=== PATIENT | female | born 1955 | race African-American/Black ===

== ENCOUNTER 2018-12-24 07:30 | Day surgery (SDC) | payer OTHER ==
[~2018-12-24] VITALS: Ht 166.4 cm; Wt 95.2 kg
--- NOTE | 2018-12-24 07:11 | HP ---
ADMIT DATE: HISTORY OF PRESENT ILLNESS: The patient is referred by Dr. Mcgrath because of epigastric mass that is getting larger and causing her more pain and tenderness. She has had a CT scan, which did not show it and has also had a sonogram, which was negative. PAST MEDICAL HISTORY: Shows normal childhood diseases. She does have hypertension and has diabetes, which she is controlling with diet, but hypertension she takes hydrochlorothiazide for. She also has had a fractured left knee many years ago and has had surgery for that and has had a bladder suspension surgery. Apparently, she had a cystocele. ALLERGIES: The patient has no allergies. REVIEW OF SYSTEMS: Basically negative except for the epigastric pain with a mass, which is enlarging. FAMILY HISTORY: Noncontributory. SOCIAL HISTORY: She does not smoke, drink or use illicit drugs. PHYSICAL EXAMINATION: GENERAL: Shows an alert female, in no acute distress. HEAD, EYES, EARS, NOSE AND THROAT: Grossly normal. CHEST: Clear bilaterally to auscultation. HEART: Had no murmurs, heaves, friction rubs or thrills and the rate was 74 beats per minute and it was regular. ABDOMEN: Showed no tenderness or organomegaly, but she did have a mass about 8-10 cm in the epigastrium, high. It appeared to be more on the right side and could not be reduced. Otherwise, the abdomen was negative. EXTREMITIES: Grossly negative except for the scar of the left knee surgery. IMPRESSION: 1. Diabetes. 2. Hypertension. 3. Not mentioned before is that she does have multiple sclerosis for which she takes no medicine and has had this for about 50 years and is basically grossly asymptomatic from that. 4. She does have an epigastric mass, which we think is an abdominal wall hernia. RAMONA HEALY MD DR: LISA/colt JOB#: [id number] / [id number]
[~2018-12-24 07:30] MED LIST: BUPIVAC MPF-EPI 0.5%-1:200000 30 ML VIAL. ONE; DULO30CA2 PO; GABA300C18 PO; HYDR-2145 PO; HYDR12.58 PO; HYDROmorphone 2 MG/ML VIAL IV PRN; IV RINGERS,LACTATED 1000ML 1,000 ML IV SCH; LIDOCAINE 1% PF 2 ML VIAL. ID PRN; MORPHINE SULFATE 2 MG/ML VIAL. IV PRN; MULT1TAB52 PO; OMEG1CAP28 PO; ONDANSETRON PF 4 MG/2 ML VIAL. IV PRN; PROCHLORPERAZINE 10 MG/2 ML VIAL. IV PRN; fentaNYL PF VIAL 100 MCG/2 ML VIAL IV PRN
[2018-12-24] MEDS ORDERED: fentaNYL PF VIAL 100 MCG/2 ML VIAL ONE (08:19)
[2018-12-24] MEDS ORDERED: LIDOCAINE 2% PF 5 ML VIAL. ONE (08:19)
[2018-12-24] MEDS ORDERED: PROPOFOL 20 ML IV ONE (08:19)
[2018-12-24] MEDS ORDERED: ROCURONIUM 50 MG/5 ML VIAL. ONE (08:19)
[2018-12-24 08:45] LABS: BASO % 1 % (0-3); EOS # 0.1 x10^3/uL (0.0-0.7); EOS % 2 % (0-3); HEMOGLOBIN 11.2 g/dL (12.0-15.5); LYMPH # 1.6 x10^3/uL (1.0-4.8); LYMPH % 36 % (24-48); MEAN CORPUSCULAR HEMOGLOBIN 25 pg (25-35); MEAN CORPUSCULAR HGB CONC 32 g/dL (31-37); MEAN CORPUSCULAR VOLUME 77 fL (79-100); MONO # 0.4 x10^3/uL (0.0-1.1); MONO % 8 % (0-9); NEUT # 2.5 x10^3/uL (1.8-7.7); NEUT % 54 % (31-73); PLATELET COUNT 239 x10^3/uL (140-400); RED BLOOD COUNT 4.53 x10^6/uL (3.50-5.40); RED CELL DISTRIBUTION WIDTH 16.5 % (11.5-14.5); WHITE BLOOD COUNT 4.6 x10^3/uL (4.0-11.0)
[2018-12-24 08:50] LABS: CALCIUM 9.8 mg/dL (8.5-10.1); CREATININE 0.7 mg/dL (0.6-1.0); GFR 102.6; POTASSIUM 3.4 mmol/L (3.5-5.1)
[2018-12-24 08:53] LABS: PROTHROMBIN TIME PATIENT 12.7 SEC (11.7-14.0)
[2018-12-24 08:56] LABS: ALBUMIN 4.1 g/dL (3.4-5.0); TOTAL BILIRUBIN 0.6 mg/dL (0.2-1.0); TOTAL PROTEIN 8.1 g/dL (6.4-8.2)
--- NOTE | 2018-12-24 10:14 | PDOC ---
SURGICAL PROGRESS NOTE Subjective Op Note: surgeon...........................Healy Pre op diag......................incarcerated venral hernia x 2 Post op diag....................same Anesthesia......................general Procedure.......................repain incarcerated ventral hernias Blood loss.......................15cc Fluids.............................see anesthesia sheet Drains.............................none Condition........................satisfactory Vital Signs Vital Signs Date Time Temp Pulse Resp B/P (MAP) Pulse Ox O2 Delivery O2 Flow Rate FiO2 12/24/18 08:25 97.3 72 20 178/90 99 Room Air 97.3 Labs Laboratory Tests Test 12/24/18 08:35 White Blood Count 4.6 x10^3/uL (4.0-11.0) Red Blood Count 4.53 x10^6/uL (3.50-5.40) Hemoglobin 11.2 g/dL (12.0-15.5) Hematocrit 35.0 % (36.0-47.0) Mean Corpuscular Volume 77 fL (79-100) Mean Corpuscular Hemoglobin 25 pg (25-35) Mean Corpuscular Hemoglobin Concent 32 g/dL (31-37) Red Cell Distribution Width 16.5 % (11.5-14.5) Platelet Count 239 x10^3/uL (140-400) Neutrophils (%) (Auto) 54 % (31-73) Lymphocytes (%) (Auto) 36 % (24-48) Monocytes (%) (Auto) 8 % (0-9) Eosinophils (%) (Auto) 2 % (0-3) Basophils (%) (Auto) 1 % (0-3) Neutrophils # (Auto) 2.5 x10^3/uL (1.8-7.7) Lymphocytes # (Auto) 1.6 x10^3/uL (1.0-4.8) Monocytes # (Auto) 0.4 x10^3/uL (0.0-1.1) Eosinophils # (Auto) 0.1 x10^3/uL (0.0-0.7) Basophils # (Auto) 0.0 x10^3/uL (0.0-0.2) Prothrombin Time 12.7 SEC (11.7-14.0) Prothromb Time International Ratio 1.0 (0.8-1.1) Activated Partial Thromboplast Time 28 SEC (24-38) Sodium Level 145 mmol/L (136-145) Potassium Level 3.4 mmol/L (3.5-5.1) Chloride Level 106 mmol/L (98-107) Carbon Dioxide Level 29 mmol/L (21-32) Anion Gap 10 (6-14) Blood Urea Nitrogen 11 mg/dL (7-20) Creatinine 0.7 mg/dL (0.6-1.0) Estimated GFR (Cockcroft-Gault) 102.6 BUN/Creatinine Ratio 16 (6-20) Glucose Level 88 mg/dL (70-99) Calcium Level 9.8 mg/dL (8.5-10.1) Total Bilirubin 0.6 mg/dL (0.2-1.0) Aspartate Amino Transf (AST/SGOT) 16 U/L (15-37) Alanine Aminotransferase (ALT/SGPT) 20 U/L (14-59) Alkaline Phosphatase 56 U/L (46-116) Total Protein 8.1 g/dL (6.4-8.2) Albumin 4.1 g/dL (3.4-5.0) Albumin/Globulin Ratio 1.0 (1.0-1.7) Laboratory Tests Test 12/24/18 08:35 White Blood Count 4.6 x10^3/uL (4.0-11.0) Red Blood Count 4.53 x10^6/uL (3.50-5.40) Hemoglobin 11.2 g/dL (12.0-15.5) Hematocrit 35.0 % (36.0-47.0) Mean Corpuscular Volume 77 fL (79-100) Mean Corpuscular Hemoglobin 25 pg (25-35) Mean Corpuscular Hemoglobin Concent 32 g/dL (31-37) Red Cell Distribution Width 16.5 % (11.5-14.5) Platelet Count 239 x10^3/uL (140-400) Neutrophils (%) (Auto) 54 % (31-73) Lymphocytes (%) (Auto) 36 % (24-48) Monocytes (%) (Auto) 8 % (0-9) Eosinophils (%) (Auto) 2 % (0-3) Basophils (%) (Auto) 1 % (0-3) Neutrophils # (Auto) 2.5 x10^3/uL (1.8-7.7) Lymphocytes # (Auto) 1.6 x10^3/uL (1.0-4.8) Monocytes # (Auto) 0.4 x10^3/uL (0.0-1.1) Eosinophils # (Auto) 0.1 x10^3/uL (0.0-0.7) Basophils # (Auto) 0.0 x10^3/uL (0.0-0.2) Prothrombin Time 12.7 SEC (11.7-14.0) Prothromb Time International Ratio 1.0 (0.8-1.1) Activated Partial Thromboplast Time 28 SEC (24-38) Sodium Level 145 mmol/L (136-145) Potassium Level 3.4 mmol/L (3.5-5.1) Chloride Level 106 mmol/L (98-107) Carbon Dioxide Level 29 mmol/L (21-32) Anion Gap 10 (6-14) Blood Urea Nitrogen 11 mg/dL (7-20) Creatinine 0.7 mg/dL (0.6-1.0) Estimated GFR (Cockcroft-Gault) 102.6 BUN/Creatinine Ratio 16 (6-20) Glucose Level 88 mg/dL (70-99) Calcium Level 9.8 mg/dL (8.5-10.1) Total Bilirubin 0.6 mg/dL (0.2-1.0) Aspartate Amino Transf (AST/SGOT) 16 U/L (15-37) Alanine Aminotransferase (ALT/SGPT) 20 U/L (14-59) Alkaline Phosphatase 56 U/L (46-116) Total Protein 8.1 g/dL (6.4-8.2) Albumin 4.1 g/dL (3.4-5.0) Albumin/Globulin Ratio 1.0 (1.0-1.7) RAMONA HEALY MD Dec 24, 2018 10:14
[2018-12-24] MEDS ORDERED: ONDANSETRON PF 4 MG/2 ML VIAL. ONE (10:24)
[2018-12-24] MEDS ORDERED: DEXAMETHASONE SOD PHOS 4 MG/ML VIAL ONE (10:24)
[2018-12-24] MEDS ORDERED: DESFLURANE > 120 MINUTES IH ONE (10:24)
[2018-12-24] MEDS ORDERED: METOPROLOL TARTRATE 5 MG/5 ML VIAL. IVP ONE (10:26)
[2018-12-24] MEDS ORDERED: PHENYLEPHRINE in 0.9% NACL PF 1 MG/10 ML SYRINGE. IV ONE (10:38)
[2018-12-24] MEDS ORDERED: NEOSTIGMINE METHYLSULFATE 5 MG/5 ML SYRINGE. ONE (10:52)
[2018-12-24] MEDS ORDERED: GLYCOPYRROLATE 1 MG/5 ML VIAL. ONE (10:52)
--- NOTE | 2018-12-24 12:39 | DISCH ---
DISCHARGE INSTRUCTIONS Condition on Discharge Condition on Discharge: Stable Activity After Discharge Activity Instructions for Disc: Activity as tolerated, Bedrest today, Walk in house, Other, see below Other activity instructions: activity non strenuous Lifting Instructions after Dis: No heavy lifting Driving Instructions after Dis: Do not drive today Weight Bearing Status after Di: No restrictions Diet after Discharge Diet after Discharge: Clear Liquid, Low Fat, Regular Diet Texture: Regular Liquid Texture: Thin Liquid Swallowing Supervision: None needed Wound Incision Care Wound/Incision Care: Other, see below Other wound/incision instructi: May shower so horvath abd binder when OOB and loose or off when in bed Checks after Discharge Checks after discharge: Check blood press - daily Follow-Up Follow up with: [facility] and make appointment to see me in 7-10days. Treatment/Equipment after DC Adaptive Equipment Issued: None RAMONA HEALY MD Dec 24, 2018 12:39
[2018-12-24] MEDS ORDERED: OXYC1TAB19 PO (13:36)
[2018-12-24] MEDS ORDERED: oxyCODONE/APAP 7.5/325 1 TAB TABLET PO ONE (13:45)
[2018-12-24 14:30] VITALS: BP 169/90
--- NOTE | 2018-12-24 23:31 | OP ---
DATE OF SURGERY: 12/24/2018 SURGEON: Philipp Healy MD. PREOPERATIVE DIAGNOSIS: Incarcerated ventral hernia x 2. POSTOPERATIVE DIAGNOSIS: Incarcerated ventral hernia x 2. PROCEDURE: Repair of incarcerated ventral hernias of the anterior abdominal wall. ANESTHESIA: General. OPERATIVE TECHNIQUE: Under general anesthesia, the patient was properly prepped and draped in a routine fashion. The larger hernia was in the midline, more proximal to the xiphoid, being almost in the middle between xiphoid and umbilicus. As such, we made an incision, little more longer inferiorly as the other hernia was there. The more inferior hernia was not palpated but was seen on CT scan. The incision was made with a #15 blade, carried down through the skin about 6 inches or more in length. We carried this down through the skin using a #15 blade. We then went into the subcutaneous over the mass that could be seen there with a Metzenbaum scissors and slowly dissected down to the sac. Then, using sharp dissection with Metzenbaum scissors and also finger dissection, we freed the sac from the surrounding structures. We found the sac down at its ring and we could not reduce this hernia. It was about the size of a small apple. We then opened the sac and actually I do not think we ever went into the peritoneal cavity. We never saw intestines and this may have been simply preperitoneal fat and omentum. At any rate, we did not explore into the abdomen to see. We slowly were able to open this up and slowly reduced the contents of the sac after it freed up from some of the adhesions back into the hernia. Having done this, we inspected the area and then placed a circular piece of mesh, which had Seprafilm on one side and placed it in there. The tag was there, so that it would not fall and we were not in the peritoneal cavity. We placed this in so that the Seprafilm was pointing towards the posterior area and anteriorly it was where the tie came out, it lay flat and was about 4-5 cm in diameter. We then pulled this up and then placed four #1 Prolene sutures through the fascia going about a centimeter back and a centimeter forward, and taken to the anterior portion of the small bit of mesh that was there. There was double layer so we did not penetrate below the posterior layer. These were placed and then the tag on the patch was removed and we then tied these. She had a good closure there with the mesh in place and the hernia had been fixed. We did inject 0.5% Marcaine and epinephrine into the fascia where the hernia had been and also where the sutures were. We then dissected inferiorly and found a mass, which was about the size of a pecan, more inferiorly about 4 cm caudad to this hernia repair. We then were able to free it up in a likewise fashion, reduced it and then placed two #1 Prolene sutures in this. The defect in the fascia was so small, we did not put a plug or patch there. This having been done, we likewise anesthetized this with 0.5% Marcaine and epinephrine. The procedure was now closed with the sutures were cut and we then irrigated the subcutaneous with saline and then approximated the subcutaneous using interrupted 4-0 Vicryl and the skin was closed using a skin stapler. Sterile Tegaderm dressing was applied and the procedure was terminated. The blood loss was probably about 15-20 mL. Fluids given can be obtained from the anesthesia sheet. No drains were used. Condition of the patient was satisfactory as she returned to the recovery room. PHILIPP HEALY MD DR: LISA/colt JOB#: [id number] / [id number]
== END 2018-12-24 14:35 | disposition home or self-care (01) ==
LOC: SURG 07:30
PROVIDERS: ATTEND Specialist
DX: K43.6 Other and unspecified ventral hernia with obstruction, without gangrene (principal); I10 Essential (primary) hypertension; E11.9 Type 2 diabetes mellitus without complications; Z79.01 Long term (current) use of anticoagulants
CPT/HCPCS: 36415; 49561; 49568; 80053; 85025; 85610; 85730; A7015; C1781; J0690; J1100; J2001; J2370; J2405; J2704; J2710; J3010; J3490

== ENCOUNTER 2018-12-24 18:38 | Emergency (ER) | payer OTHER ==
[~2018-12-24] VITALS: Ht 167.6 cm; Wt 95.3 kg
[~2018-12-24 18:38] MED LIST changes: -BUPIVAC MPF-EPI 0.5%-1:200000 30 ML VIAL. ONE; -HYDROmorphone 2 MG/ML VIAL IV PRN; -IV RINGERS,LACTATED 1000ML 1,000 ML IV SCH; -LIDOCAINE 1% PF 2 ML VIAL. ID PRN; -MORPHINE SULFATE 2 MG/ML VIAL. IV PRN; -ONDANSETRON PF 4 MG/2 ML VIAL. IV PRN; +OXYC1TAB19 PO; -PROCHLORPERAZINE 10 MG/2 ML VIAL. IV PRN; -fentaNYL PF VIAL 100 MCG/2 ML VIAL IV PRN
[2018-12-24 19:03] VITALS: BP 136/68
--- NOTE | 2018-12-24 20:20 | PHYS DOC ---
Past Medical History Past Medical History: Hypertension Additional Past Medical Histor: MULTIPLE SCLEROSIS (STEFANI RICARDO APRN) Past Surgical History: Knee Replacement Additional Past Surgical Histo: Left knee,Right ankle, pelvic sling (STEFANI RICARDO APRN) Alcohol Use: None Drug Use: None (STEFANI RICARDO APRN) Adult General Chief Complaint Chief Complaint: WOUND CHECK [facility] HPI Patient is a 63 year old AA female who presents to the emergency Department today with complaints of her ventral hernia surgical dressing being saturated with blood. She states that she had a ventral hernia repair earlier today by Dr. Healy and that tonight she noticed that the gauze was bloody. She denies any injury to his sites. She denies any drainage of blood from the dressing. She states that she called the office and told her to go to the ER to have the site checked. She denies any pain. ROS Patient denies fever, abdominal pain, nausea, vomiting, diarrhea, or any injury to her abdomen. She denies dizziness, lightheadedness, or shortness of breath. All other ROS is neg unless otherwise noted in HPI. (STEFANI RICARDO OUTREACH MANAGER) Review of Systems Review of Systems See Above (STEFANI RICARDO APRN) Allergies Allergies Allergies Coded Allergies Type Severity Reaction Last Updated Verified sulfamethoxazole Adverse Reaction Intermediate Nausea and Vomiting 12/24/18 Yes trimethoprim Adverse Reaction Intermediate Nausea and Vomiting 12/24/18 Yes morphine Adverse Reaction Mild Nausea and Vomiting 12/24/18 Yes (BASSEM MAYS DO) Physical Exam Physical Exam See Above Constitutional: Well developed, well nourished, no acute distress, non-toxic appearance, obese. [] HENT: Normocephalic, atraumatic, bilateral external ears normal, nose normal. [] Eyes: conjunctiva normal, no discharge. [] Neck: Normal range of motion, no stridor. [] Cardiovascular:Heart rate regular rhythm Lungs & Thorax: Respirations even and unlabored, no retractions, no respiratory distress Abdomen: Bowel sounds normal, soft, no tenderness, no masses, no pulsatile masses. [] Skin: Warm, dry, no erythema, no rash; surgical dressing in place over her lower abdomen running vertically with a blood saturated gauze, no drainage from beneath the Tegaderm, no warmth. [] Extremities: No cyanosis, no clubbing, ROM intact, no edema. [] Neurologic: Alert and oriented X 3, no focal deficits noted. [] Psychologic: Affect normal, judgement normal, mood normal. [] (STEFANI RICARDO APRN) Current Patient Data Vital Signs Vital Signs Date Time Temp Pulse Resp B/P (MAP) Pulse Ox O2 Delivery O2 Flow Rate FiO2 12/24/18 19:03 98.1 78 18 136/68 (90) 94 Room Air 98.1 (BASSEM MAYS DO) EKG EKG [] (STEFANI RICARDO APRN) Radiology/Procedures Radiology/Procedures [] (STEFANI RICARDO APRN) Course & Med Decision Making Course & Med Decision Making Pertinent Labs and Imaging studies reviewed. (See chart for details) dx: Patient with feared complaint no diagnosis made, postop bleeding 1941- spoke with Dr. Herr needed per Dr. Healy advised the patient that this is a normal finding. We may change the dressing if the patient would like. however, if the dressing is changed patient is to be instructed to not take showers or bathe in a manner that the dressing might get wet. However, he would recommend the dressing be left in place to keep the site surgically sterile. Offered to change the dressing for the patient as suggested by Dr. Healy, patient declined change of dressing at this time. Will return if site begins to ooze blood. Patient verbalized an understanding of home care, medications, follow-up, and return to ED instructions and was in agreement with the plan of care. [] (STEFANI RICARDO APRN) Dragon Disclaimer Dragon Disclaimer This electronic medical record was generated, in whole or in part, using a voice recognition dictation system. (STEFANI RICARDO APRN) Departure Departure Impression: Primary Impression: Person with feared complaint in whom no diagnosis is made Additional Impression: Post-op bleeding Disposition: 01 HOME, SELF-CARE Condition: STABLE Referrals: BLANCA SOSA (PCP) RAMONA HEALY MD Patient Instructions: Postsurgical Bleeding Additional Instructions: Follow-up with Dr. Healy as planned, return to the emergency room if blood starts to drain out from under your dressing. Attending Signature Attending Signature I have reviewed the PA/DIRECTOR REGULATORY AFFAIRS's note and plan of care. I was available for consultation as needed during the patient's visit in the emergency department. I agree with the clinical impression, plan, and disposition. (BASSEM MAYS DO) Problem Qualifiers Additional Impression: Post-op bleeding Surgical complication system/body Area: digestive system Procedure type: digestive system Qualified Codes: K91.840 - Postprocedural hemorrhage of a digestive system organ or structure following a digestive system procedure STEFANI RICARDO APRN Dec 24, 2018 20:20 BASSEM MAYS DO Dec 25, 2018 04:56
== END 2018-12-24 20:27 | disposition home or self-care (01) ==
LOC: ER 18:38
DX: K91.840 Postprocedural hemorrhage of a digestive system organ or structure following a digestive system procedure (principal); I10 Essential (primary) hypertension; Z96.652 Presence of left artificial knee joint; Z88.2 Allergy status to sulfonamides; Z88.5 Allergy status to narcotic agent; Z88.1 Allergy status to other antibiotic agents
CPT/HCPCS: 99281

== ENCOUNTER 2021-06-14 06:49 | Emergency (ER) | payer OTHER ==
[~2021-06-14] VITALS: Ht 172.7 cm; Wt 80.0 kg
[~2021-06-14 06:49] MED LIST changes: +MULT-445 PO; -MULT1TAB52 PO
--- NOTE | 2021-06-14 07:59 | ED.ADGEN ---
Past Medical History Past Medical History: Hypertension Additional Past Medical Histor: MULTIPLE SCLEROSIS Past Surgical History: Knee Replacement Additional Past Surgical Histo: Left knee,Right ankle, pelvic sling Smoking Status: Former Smoker Alcohol Use: None Drug Use: None General Adult EDM: Chief Complaint: HEADACHE HPI: HPI: Patient is a 66-year-old female who arrives ambulatory to the emergency department complaining of a headache. Patient does appear to be in a great deal of discomfort and is unable to provide any meaningful history as she reports that she has a headache that is so great. Patient does have a reported history of multiple sclerosis according to family that is accompanying her however she is unable to provide any other history. Patient reportedly had to leave work early this morning due to her headache. She is unable to provide any history otherwise. She is awake and neurologically intact otherwise. Review of Systems: Review of Systems: Constitutional: Denies fever or chills. [] Eyes: Denies change in visual acuity. [] HENT: Denies nasal congestion or sore throat. [] Respiratory: Denies cough or shortness of breath. [] Cardiovascular: Denies chest pain or edema. [] GI: Denies abdominal pain, nausea, vomiting, bloody stools or diarrhea. [] : Denies dysuria. [] Musculoskeletal: Denies back pain or joint pain. [] Integument: Denies rash. [] Neurologic: Reports headache. Denies focal weakness or sensory changes. [] Endocrine: Denies polyuria or polydipsia. [] Lymphatic: Denies swollen glands. [] Psychiatric: Denies depression or anxiety. [] Current Medications: Current Medications Medications (Trade) Dose Ordered Sig/Lula Start Time Stop Time Status Last Admin Dose Admin Diphenhydramine HCl (Benadryl) 50 mg 1X ONCE 06/14/21 08:00 06/14/21 08:02 DC 06/14/21 08:18 50 MG Prochlorperazine Edisylate (Compazine) 10 mg 1X ONCE 06/14/21 08:00 06/14/21 08:02 DC 06/14/21 08:17 10 MG Sodium Chloride 1,000 ml @ 1,000 mls/hr 1X ONCE 06/14/21 08:00 06/14/21 08:59 DC 06/14/21 08:18 1,000 MLS/HR Allergies: Allergies: Allergies Coded Allergies Type Severity Reaction Last Updated Verified sulfamethoxazole Adverse Reaction Intermediate Nausea and Vomiting 12/24/18 Yes trimethoprim Adverse Reaction Intermediate Nausea and Vomiting 12/24/18 Yes morphine Adverse Reaction Mild Nausea and Vomiting 12/24/18 Yes Physical Exam: PE: Constitutional: Uncomfortable appearing. Well developed, well nourished, non- toxic appearance. [] HENT: Normocephalic, atraumatic, bilateral external ears normal, oropharynx moist, no oral exudates, nose normal. [] Eyes: PERRLA, EOMI, conjunctiva normal, no discharge. [] Neck: Normal range of motion, no tenderness, supple, no stridor. [] Cardiovascular: Tachycardia. no murmur [] Lungs & Thorax: Bilateral breath sounds clear to auscultation [] Abdomen: Bowel sounds normal, soft, no tenderness, no masses, no pulsatile masses. [] Skin: Warm, dry, no erythema, no rash. [] Back: No tenderness, no CVA tenderness. [] Extremities: No tenderness, no cyanosis, no clubbing, ROM intact, no edema. [] Neurologic: Alert and oriented X 3, normal motor function, normal sensory function, no focal deficits noted. [] Psychologic: Unable to assess Current Patient Data: Labs: Laboratory Tests Test 06/14/21 07:45 White Blood Count 10.8 x10^3/uL (4.0-11.0) Red Blood Count 4.40 x10^6/uL (3.50-5.40) Hemoglobin 11.0 g/dL (12.0-15.5) L Hematocrit 33.3 % (36.0-47.0) L Mean Corpuscular Volume 76 fL (79-100) L Mean Corpuscular Hemoglobin 25 pg (25-35) Mean Corpuscular Hemoglobin Concent 33 g/dL (31-37) Red Cell Distribution Width 16.5 % (11.5-14.5) H Platelet Count 339 x10^3/uL (140-400) Neutrophils (%) (Auto) 70 % (31-73) Lymphocytes (%) (Auto) 22 % (24-48) L Monocytes (%) (Auto) 7 % (0-9) Eosinophils (%) (Auto) 1 % (0-3) Basophils (%) (Auto) 0 % (0-3) Neutrophils # (Auto) 7.5 x10^3/uL (1.8-7.7) Lymphocytes # (Auto) 2.4 x10^3/uL (1.0-4.8) Monocytes # (Auto) 0.8 x10^3/uL (0.0-1.1) Eosinophils # (Auto) 0.1 x10^3/uL (0.0-0.7) Basophils # (Auto) 0.0 x10^3/uL (0.0-0.2) Sodium Level 138 mmol/L (136-145) Potassium Level 3.3 mmol/L (3.5-5.1) L Chloride Level 99 mmol/L (98-107) Carbon Dioxide Level 21 mmol/L (21-32) Anion Gap 18 (6-14) H Blood Urea Nitrogen 24 mg/dL (7-20) H Creatinine 0.8 mg/dL (0.6-1.0) Estimated GFR (Cockcroft-Gault) 87.1 BUN/Creatinine Ratio 30 (6-20) H Glucose Level 168 mg/dL (70-99) H Calcium Level 9.8 mg/dL (8.5-10.1) Total Bilirubin 0.5 mg/dL (0.2-1.0) Aspartate Amino Transferase (AST) 24 U/L (15-37) Alanine Aminotransferase (ALT) 42 U/L (14-59) Alkaline Phosphatase 65 U/L (46-116) Troponin I High Sensitivity 7 ng/L (4-50) EG-Sjc-K-Type Natriuretic Peptide 38 pg/mL (0-124) Total Protein 8.1 g/dL (6.4-8.2) Albumin 4.3 g/dL (3.4-5.0) Albumin/Globulin Ratio 1.1 (1.0-1.7) Laboratory Tests 06/14/21 07:45 Laboratory Tests 06/14/21 07:45 Vital Signs: Vital Signs Date Time Temp Pulse Resp B/P (MAP) Pulse Ox O2 Delivery O2 Flow Rate FiO2 06/14/21 07:45 97.4 94 22 167/91 (116) 100 Room Air 97.4 EKG: EKG: EKG was obtained at 8:13 AM and revealed a sinus rhythm with a ventricular rate of 69 bpm. There is QT prolongation without acute ST/T wave changes that might otherwise to note ischemia. Repeat EKG was obtained at 8:55 AM and revealed a sinus rhythm with a ventricular rate of 76 bpm. There is QT prolongation yet again without ST/T wave changes that might otherwise denote ischemia. [] Heart Score: C/O Chest Pain: No Risk Factors: Risk Factors: DM, Current or recent (<one month) smoker, HTN, HLP, family history of CAD, obesity. Risk Scores: Score 0 - 3: 2.5% MACE over next 6 weeks - Discharge Home Score 4 - 6: 20.3% MACE over next 6 weeks - Admit for Clinical Observation Score 7 - 10: 72.7% MACE over next 6 weeks - Early Invasive Strategies Radiology/Procedures: Radiology/Procedures: [][id number] [place] [id number] IMAGING REPORT Signed PATIENT: SHEN SCHWAB ACCOUNT: [id number] : 1955 LOCATION: ER AGE: 66 SEX: F EXAM STATUS: REG ER ORD. PHYSICIAN: ALISA LUNA DO REASON: pain PROCEDURE: PORTABLE CHEST 1V XR CHEST 1V 06/14/2021 7:57 AM INDICATION: Pain COMPARISON: 03/26/2016 TECHNIQUE: Portable frontal view of the chest is provided. FINDINGS: The cardiomediastinal silhouette is within normal limits. Lungs are clear. There are no significant pleural effusions. There is no pulmonary vascular congestion. No pneumothorax. No suspicious osseous abnormality. IMPRESSION: There is no acute cardiopulmonary process. Electronically signed by: Lisa Arango MD (06/14/2021 8:24 AM) [id number] DICTATED and SIGNED BY: LISA ARANGO MD DATE: 06/14/21 [id number] [id number] [place] [id number] IMAGING REPORT Signed PATIENT: SHEN SCHWAB ACCOUNT: [id number] : 1955 LOCATION: ER AGE: 66 SEX: F EXAM STATUS: REG ER ORD. PHYSICIAN: ALISA LUNA DO REASON: HEADACHE, POOR HISTORIAN PROCEDURE: CT HEAD WO CONTRAST CT HEAD INDICATION: Reason: HEADACHE, POOR HISTORIAN / Spl. Instructions: / History: COMPARISON: 08/26/2010. Exposure: One or more of the following individualized dose reduction techniques were utilized for this examination: 1. Automated exposure control 2. Adjustment of the mA and/or kV according to patient size 3. Use of iterative reconstruction technique TECHNIQUE: 5 mm contiguous axial images were obtained from the skull base to the vertex in both bone and soft tissue algorithm. FINDINGS: No abnormal attenuation within the brain parenchyma. No evidence of acute intracranial hemorrhage. No extra-axial fluid collections. No mass effect or midline shift. Ventricular size is appropriate. Basal cisterns are patent. No fractures identified.Wade-white differentiation is preserved.Globes and orbits are within normal limits. Paranasal sinuses and mastoid air cells are clear. IMPRESSION: No acute intracranial findings. Electronically signed by: Kieran Doran MD (06/14/2021 8:42 AM) [id number] DICTATED and SIGNED BY: KIERAN DORAN MD DATE: 06/14/21 [id number] Course & Med Decision Making: Course & Med Decision Making Pertinent Labs and Imaging studies reviewed. (See chart for details) Patient had IV medication in order to eradicate her headache and it does appear that it has been effective and that the patient is now resting and does not demonstrate any pain. I did speak with the patient's family and they states she has had problems with headaches for quite some time now. I have advised that she follow-up with her primary care physician for ongoing management as it relates to her headaches. Should the patient have any change in her condition such as a new headache or a neurological phenomenon associated with this, I advised that they return to the emergency department. Family understands and has agreed to do this. The patient is nontoxic-appearing and resting comfortably. She is stable for discharge. [] Dragon Disclaimer: Dragon Disclaimer: This electronic medical record was generated, in whole or in part, using a voice recognition dictation system. Departure Departure Impression: Primary Impression: Cephalalgia Additional Impression: History of multiple sclerosis Disposition: HOME / SELF CARE / HOMELESS Condition: IMPROVED Referrals: BLANCA SOSA (PCP) Patient Instructions: General Headache Without Cause Scripts Butalb/Acetaminophen/Caffeine ([id number]) 1 Each Capsule 1 EACH PO Q6HRS for 3 Days, #12 CAP Prov: ALISA LUNA DO 06/14/21 Problem Qualifiers ALISA LUNA DO Jun 14, 2021 07:59
[2021-06-14] MEDS ORDERED: diphenhydrAMINE 50 MG/ML VIAL IVP ONE (08:00)
[2021-06-14] MEDS ORDERED: PROCHLORPERAZINE 10 MG/2 ML VIAL. IV ONE (08:00)
[2021-06-14] MEDS ORDERED: IV NORMAL SALINE 1000ML BAG 1,000 ML IV ONE (08:00)
[2021-06-14 08:18] LABS: BASO % 0 % (0-3); EOS # 0.1 x10^3/uL (0.0-0.7); EOS % 1 % (0-3); HEMATOCRIT 33.3 % (36.0-47.0); LYMPH # 2.4 x10^3/uL (1.0-4.8); LYMPH % 22 % (24-48); MEAN CORPUSCULAR HEMOGLOBIN 25 pg (25-35); MEAN CORPUSCULAR HGB CONC 33 g/dL (31-37); MEAN CORPUSCULAR VOLUME 76 fL (79-100); MONO # 0.8 x10^3/uL (0.0-1.1); MONO % 7 % (0-9); NEUT # 7.5 x10^3/uL (1.8-7.7); NEUT % 70 % (31-73); PLATELET COUNT 339 x10^3/uL (140-400); RED CELL DISTRIBUTION WIDTH 16.5 % (11.5-14.5); WHITE BLOOD COUNT 10.8 x10^3/uL (4.0-11.0)
--- NOTE | 2021-06-14 08:27 | RAD ---
XR CHEST 1V 06/14/2021 7:57 AM INDICATION: Pain COMPARISON: 03/26/2016 TECHNIQUE: Portable frontal view of the chest is provided. FINDINGS: The cardiomediastinal silhouette is within normal limits. Lungs are clear. There are no significant pleural effusions. There is no pulmonary vascular congestion. No pneumothora x. No suspicious osseous abnormality. IMPRESSION: There is no acute cardiopulmonary process. Electronically signed by: Kailyn Rojas MD (06/14/2021 8:24 AM) [id number]
[2021-06-14 08:38] LABS: CALCIUM 9.8 mg/dL (8.5-10.1); CREATININE 0.8 mg/dL (0.6-1.0); GFR 87.1; POTASSIUM 3.3 mmol/L (3.5-5.1)
[2021-06-14 08:44] LABS: ALBUMIN 4.3 g/dL (3.4-5.0); ALBUMIN/GLOBULIN RATIO 1.1 (1.0-1.7); TOTAL BILIRUBIN 0.5 mg/dL (0.2-1.0); TOTAL PROTEIN 8.1 g/dL (6.4-8.2)
--- NOTE | 2021-06-14 08:44 | RAD ---
CT HEAD INDICATION: Reason: HEADACHE, POOR HISTORIAN / Spl. Instructions: / History: COMPARISON: 08/26/2010. Exposure: One or more of the following individualized dose reduction techniques were utilized for thi s examination: 1. Automated exposure control 2. Adjustment of the mA and/or kV according to patient size 3. Use of iterative reconstruction technique TECHNIQUE: 5 mm contiguous axial images were obtained from the skull base to the vertex in both bone and soft tissue algorithm. FINDINGS: No abnormal attenuation within the brain parenchyma. No evidence of acute intracranial hemorrhage. No extra-axial fluid collections. No mass effect or midline shift. Ventricular size is appropriate. Basal cisterns are patent. No fractures identified.Wade-white differentiation is preserved.Globes and orbits are within normal l imits. Paranasal sinuses and mastoid air cells are clear. IMPRESSION: No acute intracranial findings. Electronically signed by: Kieran Langston MD (06/14/2021 8:42 AM) [id number]
[2021-06-14] MEDS ORDERED: BUTA1CAP57 PO (09:40)
[2021-06-14 10:10] VITALS: BP 180/70
--- NOTE | 2021-06-14 10:16 | EKG ---
[facility] [address] [place] [address] Test Date: 2021-06-14 Test Time: 08:13:07 Pat Name: SHEN SCHWAB Department: Room: Gender: F Director Radio: : 1955 Requested By: ALISA LUNA Order Number: [id number] Reading MD: Cleveland Emery MD Measurements Intervals [place] Rate: 69 P: 38 PA: 182 QRS: 25 QRSD: 94 T: 32 QT: 476 QTc: 512 Interpretive Statements SINUS RHYTHM PROLONGED QT NON-SPECIFIC ST/T CHANGES Electronically Signed On 06-14-2021 10:41:41 USER SUPPORT SPECIALIST by Cleveland Emery MD
--- NOTE | 2021-06-14 10:17 | EKG ---
[facility] [address] [place] [address] Test Date: 2021-06-14 Test Time: 08:55:53 Pat Name: SHEN SCHWAB Department: Room: Gender: F Outreach Director: : 1955 Requested By: ALISA ULNA Order Number: [id number] Reading MD: Cleveland Emery MD Measurements Intervals [place] Rate: 76 P: 52 NH: 176 QRS: 34 QRSD: 90 T: 10 QT: 454 QTc: 516 Interpretive Statements SINUS RHYTHM PROLONGED QT CONSIDER LVH Electronically Signed On 06-14-2021 10:41:26 HUMAN RESOURCES TRAINEE by Cleveland Emery MD
== END 2021-06-14 10:10 | disposition home or self-care (01) ==
LOC: ER 06:49
DX: R51.9 Headache, unspecified (principal); G35 Multiple sclerosis; I10 Essential (primary) hypertension; Z88.2 Allergy status to sulfonamides; Z88.1 Allergy status to other antibiotic agents; Z88.5 Allergy status to narcotic agent
CPT/HCPCS: 36415; 70450; 71045; 80053; 83880; 84484; 85025; 93005; 96361; 96374; 96375; 99285; J0780; J1200; J7030